=== PATIENT | female | born 1980 | race Caucasian/White ===

== ENCOUNTER 2020-01-27 18:30 | Emergency (ER) | payer MEDICARE, MEDICAID, SELFPAY ==
--- NOTE | 2020-01-27 18:34 | ED.EAR ---
HPI - Ear Problem General Chief complaint: Ear Stated complaint: ears bleeding/pain,sore throat, cough, Time Seen by Provider: 01/27/20 18:34 Source: patient and RN notes reviewed Mode of arrival: ambulatory Limitations: no limitations History of Present Illness Complaint: ear pain and ear discharge Severity: moderate Relieving factors: nothing Treatment prior to arrival: none Related Data Allergies Allergy/AdvReac Type Severity Reaction Status Date / Time adhesive Allergy Intermediate unknown Verified 10/12/19 13:29 amlodipine Allergy Intermediate unknown Verified 10/12/19 13:29 sumatriptan [Imitrex] Allergy Intermediate unknown Verified 10/12/19 13:29 metoprolol Allergy Unknown unknown Verified 10/12/19 13:29 morphine Allergy Unknown unknown Verified 10/12/19 13:29 oxycodone Allergy Unknown unknown Verified 10/12/19 13:29 Penicillins Allergy Unknown unknown Verified 10/12/19 13:29 shellfish derived Allergy Unknown unknown Verified 10/12/19 13:29 Review of Systems Constitutional: Constitutional: Denies chills and Denies fever(s) Eyes: Eyes: Reports no additional eye complaints ENT: Reports sore throat (scratchy) Cardiovascular: Cardiovascular: Reports no additional cardiovascular complaints Respiratory: Respiratory: Reports cough (Dry), Denies dyspnea and Denies wheezing Musculoskeletal: Musculoskeletal: Reports no additional musculoskeletal complaints Integumentary/Breasts: Skin/Breast: Reports system reviewed and no additional complaints, except as docu Neurologic: Reports system reviewed and no additional complaints, except as documented Psychiatric: Psychiatric: Reports no additional psychiatric complaints Endocrine: Endocrine: Reports no additional endocrine complaints Allergic/Immunologic: Allergic/Immunologic: Reports no additional allergic/immunologic complaints [facility] Past Medical History Medical History ADHD Anxiety Boil of groin Brain tumor no surgery, chemotherapy, or radiotherapy. Hypertension Low grade glioma of brain Major depression, recurrent Migraines Nicotine dependence, cigarettes, uncomplicated Obesity, Class I, BMI 30-34.9 Ovarian cyst Pulmonary embolus Schizophrenia Surgical History Surgical History H/O laparoscopy x6 H/O ovarian cystectomy (~1995) History of (~2002) Family History Family History Other Diabetes mellitus Family history of coronary artery disease Family history of mental disorder Social History Social History Smoking packs per day: 1 Smoking cigarettes per day: 20.0 Years smoked: 22 Smoking pack-years: 22.00 Smoking status: Current every day smoker Alcohol intake: never Substance use: former Substance use type: marijuana Additional living arrangements comments: Gender identity (if verbalized by the patient): Female Spiritual care concerns: No Exam Const: General: healthy appearing and no acute distress Nutritional Appearance: well nourished Orientation/consciousness: patient oriented x3 Other: Female nurse in room during examination. HENMT: Head: normal to inspection Ears: TM's normal bilaterally, Abnormal EAC present erythema on the left, edema on the left and EAC tenderness on the left; no foreign body and no otic discharge and no periauricular adenopathy General nose exam: Normal external nose present and Normal nares present Mouth: Yes Normal oral and palatal mucosa present and Yes oropharynx normal Throat: tonsils normal and uvula midline Eyes: Conjunctivae: conjunctivae normal Pupils: Equal, round and reactive pupils present EOM: EOMs intact bilaterally Neck: Neck: normal visual inspection and no lymphadenopathy Resp: Effort & Inspection: normal respiratory effort Aus
[2020-01-27 18:48] VITALS: BP 163/102; PULSE 92; RESP 15; TEMP 36.7; O2SAT 100
[2020-01-27 18:53] VITALS: RESP 15
[2020-01-27 18:55] VITALS: RESP 15
--- NOTE | 2020-01-27 18:57 | PC.NURSE ---
IN PTS ROOM DURING ERP PHYSICAL EXAM
== END 2020-01-27 18:56 | disposition home or self-care (01) ==
PROVIDERS: Emergency Provider Emergency Medicine; PCP Nurse Practitioner Family
DX: H60.312 Diffuse otitis externa, left ear (principal)
CPT/HCPCS: 99283

== ENCOUNTER 2021-06-14 10:25 | Outpatient (CLI) | payer MEDICARE, MEDICAID, SELFPAY ==
--- NOTE | 2021-06-14 10:40 | PC.NURSE ---
Here for covid infusion, isolation room used
[2021-06-14] MEDS: ACETAMINOPHEN 325 MG TABLET 650 MG PO (10:55)
[2021-06-14] MEDS: FAMOTIDINE 20 MG TABLET PO (10:56)
[2021-06-14] MEDS: diphenhydrAMINE HCl CAP 25 MG CAPSULE PO (10:56)
--- NOTE | 2021-06-14 10:57 | PC.NURSE ---
consent signed and pre medication given
[2021-06-14 11:30] VITALS: BP 131/81; PULSE 72; RESP 18; O2SAT 98
--- NOTE | 2021-06-14 11:49 | PC.NURSE ---
Infusion complete, tolerated well
--- NOTE | 2021-06-14 12:26 | PC.NURSE ---
Up to void, denies needs
[2021-06-14 12:37] VITALS: BP 144/98; PULSE 68; RESP 18; TEMP 36; O2SAT 96
--- NOTE | 2021-06-14 12:39 | PC.NURSE ---
Discharged to home via wheel chair, denies needs, information packet on covid infusion given, voiced no questions upon discharge home
== END 2021-06-14 10:26 | disposition home or self-care (01) ==
PROVIDERS: PCP Family Medicine; Visit Provider Family Medicine
DX: Z23 Encounter for immunization (principal); U07.1 COVID-19
CPT/HCPCS: 96365; A9270; M0245; Q0245

== ENCOUNTER 2022-01-11 16:00 | Emergency (ER) | payer OTHER, SELFPAY ==
[2022-01-11 16:15] VITALS: BP 131/95; PULSE 92; RESP 16; TEMP 36.2; O2SAT 98
--- NOTE | 2022-01-11 16:38 | ED.WOUNDLAC ---
HPI - Wound/Laceration General Stated Complaint: cut on ankle Source: patient and family Mode of arrival: ambulatory Limitations: no limitations History of Present Illness HPI narrative: this is a 41-year-old female that presents after she cut herself on a piece of glass while she was taking out the trash on the left medial ankle approximately2.5cm non gaping currently no bleeding, will update patient with her tetanus. Onset (ago): hour(s) Extremity Location: Left: ankle ( non gaping laceration) Place: home Context: accidental Associated symptoms: none Related Data Allergies Allergy/AdvReac Type Severity Reaction Status Date / Time adhesive Allergy Intermediate unknown Verified 06/12/21 10:58 amlodipine Allergy Intermediate unknown Verified 06/12/21 10:58 cephalexin [From Keflex] Allergy Intermediate rash, SOB, Verified 06/12/21 10:58 swelling sumatriptan [Imitrex] Allergy Intermediate unknown Verified 06/12/21 10:58 metoprolol Allergy Unknown unknown Verified 06/12/21 10:58 oxycodone Allergy Unknown unknown Verified 06/12/21 10:58 Penicillins Allergy Unknown unknown Verified 06/12/21 10:58 shellfish derived Allergy Unknown unknown Verified 06/12/21 10:58 Review of Systems Review of Systems: All systems reviewed & are unremarkable except as noted in HPI and below PMFSH Past Medical History Medical History (Updated 01/11/22 @ 16:41 by Mc Brush MD) ADHD Anxiety Asthma Boil of groin Brain tumor no surgery, chemotherapy, or radiotherapy. Hypertension Low grade glioma of brain Major depression, recurrent Migraines Nicotine dependence, cigarettes, uncomplicated Obesity, Class I, BMI 30-34.9 Ovarian cyst Pulmonary embolus Schizophrenia Surgical History Surgical History H/O laparoscopy x6 H/O ovarian cystectomy (~1995) History of (~2002) Family History Family History Other Diabetes mellitus Family history of coronary artery disease Family history of mental disorder Social History Social History Smoking packs per day: 1 Smoking cigarettes per day: 20.0 Years smoked: 22 Smoking pack-years: 22.00 Smoking status: Current every day smoker Alcohol intake: never Substance use: former Substance use type: marijuana Additional living arrangements comments: Gender identity (if verbalized by the patient): Female Spiritual care concerns: No Exam Const: General: no acute distress HENMT: Head: normal to inspection Eyes: Conjunctivae: conjunctivae normal Pupils: Equal, round and reactive pupils present Neck: Neck: normal visual inspection, no lymphadenopathy and no meningeal signs Chest: Chest palpation & inspection: normal inspection of the chest Resp: Effort & Inspection: normal respiratory effort Cardio: Rate: regular rate Rhythm: regular rhythm GI: GI Palp: Yes Soft to palpation Percussion: Yes normal to percussion Skin: Other: 2.5cm non gaping laceration left medial ankle Neuro: General: patient oriented x3 Extrem: General: normal to inspection Psych: Mental Status: mental status grossly normal Course Course Emergency Course: patient received tetanus, and Dermabond was placed on the laceration. Procedures Laceration Laceration 1: Date: 01/11/22 Time: 16:40 Site: lower extremity Side (If applicable): left Size (cm): 2.5 Description: linear ====== Skin Level ====== Skin layer closed with: dermabond ====== Subcutaneous Layer ====== ====== Muscle Layer ====== ====== Tendon Layer ====== Critical Care Time Critical Care Time Critical Care Time: No Discharge Plan Discharge Clinical Impression: Laceration Patient Disposition: Home, Self-Care Condition: Stable Instru
[2022-01-11 17:15] VITALS: BP 135/80; PULSE 74; RESP 16; TEMP 36.7; O2SAT 97
== END 2022-01-11 17:20 | disposition home or self-care (01) ==
PROVIDERS: Emergency Provider Emergency Medicine; PCP Nurse Practitioner Family
DX: S91.012A Laceration without foreign body, left ankle, initial encounter (principal); W25.XXXA Contact with sharp glass, initial encounter
CPT/HCPCS: 12001; 99282

== ENCOUNTER 2022-05-11 09:51 | Outpatient (CLI) | payer OTHER, SELFPAY ==
[2022-05-11 11:07] LABS: SARS-CoV-2 RNA PCR Positive (Negative)
== END 2022-05-11 09:52 | disposition home or self-care (01) ==
PROVIDERS: PCP Family Medicine; Visit Provider Family Medicine
DX: U07.1 COVID-19 (principal); R09.81 Nasal congestion
CPT/HCPCS: C9803; U0003; U0005

== ENCOUNTER 2022-07-13 12:30 | Outpatient (CLI) | payer OTHER, SELFPAY ==
[2022-07-13 12:53] LABS: Hematocrit 43.6 % (35.0-49.0); Hemoglobin 14.3 g/dL (12.0-15.0); Mean Corpuscular HGB Conc 32.8 g/dL (32.0-36.0); Mean Corpuscular Volume 94.4 fL (78.0-102.0); Mean Platelet Volume 9.3 fl (9.2-11.8); Platelet Count Result 392 K/mm3 (150-420); Red Blood Count 4.62 M/mm3 (4.20-5.40); Red Cell Distribution Width 13.7 % (11.6-14.4); White Blood Count 10.8 K/mm3 (4.8-10.8)
[2022-07-13 13:51] LABS: Alanine Aminotransferase 18 U/L (14-59); Albumin Level 4.2 g/dL (3.4-5.0); Alkaline Phosphatase 99 U/L (46-116); Anion Gap 11 mmol/L (8-16); Aspartate Amino Transferase < 10 U/L (15-37); Bilirubin,Total 0.6 mg/dL (0.00-1.00); Blood Urea Nitrogen 13 mg/dL (7-18); Calcium 9.1 mg/dL (8.5-10.1); Carbon Dioxide 23 mmol/L (21-32); Chloride 102 mmol/L (98-108); Cholesterol 230 mg/dL (0-200); Estimated Glomerular Filt Rate > 60; Glucose 96 mg/dL (70-99); HDL Direct 82 mg/dL (40-60); LDL Cholesterol Calculated 135 mg/dL (<130); Magnesium 2.1 mg/dL (1.8-2.4); Osmolality Calculated 282 mOsm/kg (285-295); Potassium 3.7 mmol/L (3.5-5.1); Sodium 136 mmol/L (136-145); Total Protein 7.6 g/dL (6.4-8.2); Triglycerides 66 mg/dL (0-150)
[2022-07-13 14:10] LABS: Thyroid Stimulating Hormone Reflex 1.44 u/IU/mL (0.36-3.74)
== END 2022-07-13 12:31 | disposition home or self-care (01) ==
LOC: CHSLAB 12:32
PROVIDERS: PCP Family Medicine; Visit Provider Family Medicine
DX: E11.9 Type 2 diabetes mellitus without complications (principal); I10 Essential (primary) hypertension
CPT/HCPCS: 36415; 80053; 80061; 83036; 83735; 84443; 85027

== ENCOUNTER 2022-07-14 18:30 | Emergency (ER) | payer OTHER, SELFPAY ==
[2022-07-14 18:44] VITALS: BP 180/102; PULSE 110; RESP 16; TEMP 36.7; O2SAT 98
--- NOTE | 2022-07-14 18:46 | ED.EXTPRO ---
HPI - Extremity Problem General Chief complaint: Extremity Problem,Nontraumatic Stated complaint: knot in L wrist;started a weak ago;painful Time Seen by Provider: 07/14/22 18:33 Source: patient Mode of arrival: ambulatory Limitations: no limitations History of Present Illness HPI Narrative: patient presents with a cyst on her left wrist, had been smaller but over the last week has increased in size and currently it is painful with no redness no warmth or tenderness no drainage. MD Complaint: extremity pain Related Data Allergies Allergy/AdvReac Type Severity Reaction Status Date / Time adhesive Allergy Intermediate unknown Verified 07/14/22 18:49 amlodipine Allergy Intermediate unknown Verified 07/14/22 18:49 cephalexin [From Keflex] Allergy Intermediate rash, SOB, Verified 07/14/22 18:49 swelling sumatriptan [Imitrex] Allergy Intermediate unknown Verified 07/14/22 18:49 metoprolol Allergy Unknown unknown Verified 07/14/22 18:49 oxycodone Allergy Unknown unknown Verified 07/14/22 18:49 Penicillins Allergy Unknown unknown Verified 07/14/22 18:49 shellfish derived Allergy Unknown unknown Verified 07/14/22 18:49 Review of Systems Review of Systems: All systems reviewed & are unremarkable except as noted in HPI and below PMFSH Past Medical History Medical History (Updated 07/14/22 @ 18:49 by Mc Brush MD) ADHD Anxiety Asthma Boil of groin Brain tumor no surgery, chemotherapy, or radiotherapy. Hypertension Low grade glioma of brain Major depression, recurrent Migraines Nicotine dependence, cigarettes, uncomplicated Obesity, Class I, BMI 30-34.9 Ovarian cyst Pulmonary embolus Schizophrenia Surgical History Surgical History H/O laparoscopy x6 H/O ovarian cystectomy (~1995) History of (~2002) Family History Family History Other Diabetes mellitus Family history of coronary artery disease Family history of mental disorder Social History Social History Smoking packs per day: 1 Smoking cigarettes per day: 20.0 Years smoked: 22 Smoking pack-years: 22.00 Smoking status: Current every day smoker Alcohol intake: never Substance use: former Substance use type: marijuana Additional living arrangements comments: Gender identity (if verbalized by the patient): Female Spiritual care concerns: No Exam Const: General: healthy appearing Nutritional Appearance: well nourished Orientation/consciousness: patient oriented x3 Limitations: no limitations HENMT: Head: normal to inspection Face and sinus: normal facial exam Mouth: Yes Normal oral and palatal mucosa present Eyes: Conjunctivae: conjunctivae normal Pupils: Equal, round and reactive pupils present EOM: EOMs intact bilaterally Neck: Neck: normal visual inspection Chest: Chest palpation & inspection: normal inspection of the chest Resp: Effort & Inspection: normal respiratory effort Auscultation: clear to auscultation bilaterally Cardio: Rhythm: regular rhythm GI: GI Palp: Yes Soft to palpation Auscultation: normal bowel sounds : General: Yes bladder normal to palpation Skin: Other: Assist located on the anterior surface of her left wrist that appears to be a ganglion cyst with no warmth no redness it is tender to touch with no drainage. Neuro: General: patient oriented x3 Cranial nerves: Yes Nystagmus not present Speech: normal speech Extrem: General: normal to inspection, no clubbing, cyanosis or edema and no pedal edema Course Course Emergency Course: Patient received shot of Toradol 60mg IM Critical Care Time Critical Care Time Critical Care Time: No Discharge Plan Discharge Clinical Impression: Ganglion cyst Patient Disposition: Home, Self-Care Condition: Stable Instructions: Anti
[2022-07-14] MEDS: KETOROLAC (*BKC) 60 MG/2 ML VIAL IM (18:57)
[2022-07-14 19:01] VITALS: BP 146/113; PULSE 110; RESP 16; TEMP 36.7; O2SAT 98
== END 2022-07-14 19:03 | disposition home or self-care (01) ==
PROVIDERS: Emergency Provider Emergency Medicine; PCP Family Medicine
DX: M67.432 Ganglion, left wrist (principal)
CPT/HCPCS: 96372; 99283; J1885

== ENCOUNTER 2022-09-25 13:16 | Outpatient (CLI) | payer OTHER, SELFPAY ==
--- NOTE | 2022-09-25 13:22 | ECG_ITS ---
Measurements Intervals [place] Rate: 88 P: 64 [place]: 124 QRS: 63 QRSD: 92 T: 57 QT: 390 QTc: 473 Interpretive Statements SINUS RHYTHM BASELINE WANDER- I, II, III, AVR, AVL NORMAL ECG COMPARED TO ECG 09/06/2019 20:58:55 NO SIGNIFICANT CHANGES Electronically Signed On 09-25-2022 14:09:50 [employer]ER by Pierce Alarcon D.O.
== END 2022-09-25 13:17 | disposition home or self-care (01) ==
LOC: CHSCARD 13:19
PROVIDERS: PCP Family Medicine; Visit Provider Anesthesiology
DX: Z01.818 Encounter for other preprocedural examination (principal); I10 Essential (primary) hypertension
CPT/HCPCS: 93005

== ENCOUNTER 2022-10-08 10:13 | Outpatient (CLI) | payer OTHER, SELFPAY ==
--- NOTE | ~2022-10-08 | US_ITS ---
Ultrasound of the right axilla CLINICAL HISTORY: Lump TECHNIQUE: Sonographic imaging of the right axilla was performed. FINDINGS: At the area of clinical concern, there is a 5 x 3 x 7 mm hypoechoic structure just beneath the skin surface, possibly sebaceous cyst. No other sonographic abnormality seen in the region scanne d. IMPRESSION: Subcentimeter hypoechoic structure at the area of clinical concern, possibly small sebaceous cyst. Cl inical follow-up advised. Consider follow-up exam if the lesion progresses or fails to resolve. Reviewed, dictated and finalized at location M. ET ASSISTANT IMPRESSION: Subcentimeter hypoechoic structure at the area of clinical concern, possibly sm all sebaceous cyst. Clinical follow-up advised. Consider follow-up exam if the lesion progresses or fails to resolve.
== END 2022-10-08 10:14 | disposition home or self-care (01) ==
PROVIDERS: PCP Family Medicine; Visit Provider Family Medicine
DX: R22.31 Localized swelling, mass and lump, right upper limb (principal)
CPT/HCPCS: 76882

== ENCOUNTER 2022-11-17 09:02 | Outpatient (CLI) | payer OTHER, SELFPAY ==
--- NOTE | ~2022-11-17 | MR_ITS ---
MRI of the brain Clinical History: Headache, confusion, history of brain tumor Technique: Axial and sagittal T1-weighted images were acquired. These were followed by axial T2-weigh jt, diffusion weighted, gradient, and FLAIR images. COMPARISON: 07/19/2018 Findings: No acute infarct or intracranial hemorrhage identified. Stable small apparent T2 hyperinten se mass at the posterior left midbrain measuring 9 mm in maximum diameter (series 6 image 12). Ventricles and subarachnoid spaces are unremarkable. Orbits are unremarkable. Paranasal sinuses and m astoid air cells are clear. Major intracranial flow voids appear intact. Sagittal midline structures are intact. IMPRESSION: No acute abnormality. Stable 9 mm T2 hyperintense circumscribed mass at the posterior left midbrain region. Reviewed, dictated and finalized at location M. IMPRESSION: No acute abnormality. Stable 9 mm T2 hyperintense circumscribed mass at the posterior left midbrain r egion.
== END 2022-11-17 09:03 | disposition home or self-care (01) ==
LOC: CHSIMG 09:03
PROVIDERS: PCP Family Medicine; Visit Provider Family Medicine
DX: C71.9 Malignant neoplasm of brain, unspecified (principal)
CPT/HCPCS: 70551

== ENCOUNTER 2023-02-17 12:52 | Emergency (ER) | payer OTHER, SELFPAY ==
--- NOTE | ~2023-02-17 | XR_ITS ---
XR hand BI arthritis min 3V DATE: 02/17/2023 13:22 INDICATION: Painful swelling and tenderness for one week TECHNIQUE: 4 views of each hand COMPARISON: None FINDINGS: No fracture or dislocation, periosteal reaction or bone destruction, erosive change or garry dral calcinosis. Mild narrowing at some interphalangeal joints suggests there are mild osteoarthritis . IMPRESSION: Very mild osteoarthritis Reviewed, dictated and finalized at location A. IMPRESSION: Very mild osteoarthritis
[2023-02-17 12:54] VITALS: BP 176/93; PULSE 90; RESP 20; TEMP 36.8; O2SAT 100
--- NOTE | 2023-02-17 13:11 | ED.GENADULT ---
HPI - General Adult General Chief complaint: Extremity Injury, Upper Stated complaint: hand swelling Time Seen by Provider: 02/17/23 13:00 History of Present Illness HPI narrative: Mary is a 42F with a complex history of schizoaffective disorder, severe headaches, idiopathic neuropathy, GERD, Asthma, anxiety and HTN that presented to the ED with a few days of worsening pain and swelling in her hands bilaterally. No injury or trauma reported. She says they feel, swollen, are weak an she has been dropping things. Related Data Allergies Allergy/AdvReac Type Severity Reaction Status Date / Time adhesive Allergy Intermediate Rash Verified 02/17/23 13:08 amlodipine Allergy Intermediate Rash Verified 02/17/23 13:08 cephalexin [From Keflex] Allergy Intermediate rash, SOB, Verified 02/17/23 13:08 swelling sumatriptan [Imitrex] Allergy Intermediate Rash Verified 02/17/23 13:08 metoprolol Allergy Unknown Rash Verified 02/17/23 13:08 oxycodone Allergy Unknown Rash Verified 02/17/23 13:08 Penicillins Allergy Unknown Rash Verified 02/17/23 13:08 shellfish derived Allergy Unknown Rash Verified 02/17/23 13:08 tramadol AdvReac Rash Verified 02/17/23 13:08 Review of Systems Review of Systems: All systems reviewed & are unremarkable except as noted in HPI and below PMFSH Past Medical History Medical History (Updated 02/17/23 @ 14:12 by Diego Ralph DO) ADHD Anxiety Asthma Boil of groin Brain tumor no surgery, chemotherapy, or radiotherapy. Hypertension Low grade glioma of brain Major depression, recurrent Migraines Nicotine dependence, cigarettes, uncomplicated Obesity, Class I, BMI 30-34.9 Ovarian cyst Pulmonary embolus Schizophrenia Surgical History Surgical History H/O laparoscopy x6 H/O ovarian cystectomy (~1995) History of (~2002) Family History Family History Other Diabetes mellitus Family history of coronary artery disease Family history of mental disorder Social History Social History Smoking packs per day: 1 Smoking cigarettes per day: 20.0 Years smoked: 25 Smoking pack-years: 25.00 Smoking status: Current every day smoker Tobacco type: cigarettes Alcohol intake: never Substance use: current Substance use type: marijuana Living arrangements: with family Additional living arrangements comments: Gender identity (if verbalized by the patient): Female Spiritual care concerns: No Exam Const: General: healthy appearing and no acute distress Nutritional Appearance: well nourished Orientation/consciousness: patient oriented x3 HENMT: Head: normal to inspection Ears: external ears normal Face/Nose/Sinus: Normal external nose present Face and sinus: normal facial exam Eyes: Conjunctivae: conjunctivae normal Pupils: Equal, round and reactive pupils present EOM: EOMs intact bilaterally Neck: Neck: normal visual inspection Chest: Chest palpation & inspection: normal inspection of the chest Resp: Effort & Inspection: normal respiratory effort Cardio: Rate: regular rate Skin: General skin exam: normal color Rashes: no rashes Neuro: General: patient oriented x3 and moves all extremities Cranial nerves: Yes Nystagmus not present Speech: normal speech Extrem: General: normal to inspection Other: hands are normal to inspection. No joint TTP. strong radial pulses bilaterally. She was able to make a fist. Psych: Mental Status: mental status grossly normal Course Course Emergency Course: Ordered Toradol, labs and radiographs. XR hand BI arthritis min 3V DATE: 02/17/2023 13:22 INDICATION: Painful swelling and tenderness for one week? TECHNIQUE: 4 views of each hand? COMPARISON: None? FINDINGS: No fracture or dislocation, periosteal reaction or bone destruction, erosive
[2023-02-17] MEDS: KETOROLAC 30 MG/ML VIAL (*BKC) IM (13:29)
[2023-02-17 13:41] LABS: Basophils Absolute Auto 0.04 K/mm3 (0.00-0.10); Basophils Percent Auto 0.7 % (0.0-1.0); Eosinophils Percent Auto 1.7 % (1.0-6.0); Hematocrit 40.2 % (35.0-49.0); Hemoglobin 13.4 g/dL (12.0-15.0); Immature Granulocyte Absolute 0.01 K/mm3 (0.00-0.00); Immature Granulocyte Percent A 0.2 % (0.0-0.0); Lymphocytes Absolute Auto 2.54 K/mm3 (1.10-4.50); Mean Corpuscular HGB Conc 33.3 g/dL (32.0-36.0); Mean Corpuscular Hemoglobin 31.9 pg (27.0-31.0); Mean Corpuscular Volume 95.7 fL (78.0-102.0); Mean Platelet Volume 9.5 fl (9.2-11.8); Monocytes Absolute Auto 0.37 K/mm3 (0.10-0.90); Monocytes Percent Auto 6.3 % (2.0-11.0); Neutrophils Absolute Auto 2.9 K/mm3 (1.7-7.2); Neutrophils Percent Auto 48.1 % (50.0-70.0); Platelet Count Result 343 K/mm3 (150-420); Red Cell Distribution Width 13.9 % (11.6-14.4); White Blood Count 5.9 K/mm3 (4.8-10.8)
[2023-02-17 14:05] VITALS: BP 130/69; PULSE 62; RESP 16; TEMP 36.5; O2SAT 99
[2023-02-17 14:09] LABS: Alanine Aminotransferase 16 U/L (14-59); Albumin Level 3.8 g/dL (3.4-5.0); Alkaline Phosphatase 92 U/L (46-116); Anion Gap 7 mmol/L (8-16); Aspartate Amino Transferase 19 U/L (15-37); Bilirubin,Total 0.4 mg/dL (0.00-1.00); Blood Urea Nitrogen 8 mg/dL (7-18); CRP < 0.5 mg/dL (0.0-0.9); Calcium 8.9 mg/dL (8.5-10.1); Carbon Dioxide 28 mmol/L (21-32); Chloride 105 mmol/L (98-108); Estimated CRCL calculation 91 ml/min; Estimated Glomerular Filt Rate > 60; Glucose 104 mg/dL (70-99); Osmolality Calculated 288 mOsm/kg (285-295); Potassium 3.8 mmol/L (3.5-5.1); Sodium 140 mmol/L (136-145); Total Protein 7.1 g/dL (6.4-8.2)
== END 2023-02-17 14:20 | disposition home or self-care (01) ==
PROVIDERS: Emergency Provider Family Medicine; PCP Family Medicine
DX: G60.9 Hereditary and idiopathic neuropathy, unspecified (principal); I10 Essential (primary) hypertension; F17.210 Nicotine dependence, cigarettes, uncomplicated
CPT/HCPCS: 36415; 73130; 80053; 85025; 86140; 96372; 99283; J1885

== ENCOUNTER 2023-05-06 16:09 | Emergency (ER) | payer OTHER, SELFPAY ==
[2023-05-06 16:15] VITALS: BP 164/90; PULSE 106; RESP 20; TEMP 37.1; O2SAT 100
--- NOTE | 2023-05-06 16:31 | ECG_ITS ---
Measurements Intervals [place] Rate: 87 P: 59 [place]: 155 QRS: 43 QRSD: 93 T: 42 QT: 394 QTc: 477 Interpretive Statements SINUS RHYTHM BASELINE ARTIFACT- I, II, AVR, AVL NORMAL ECG COMPARED TO ECG 09/25/2022 13:29:10 NO SIGNIFICANT CHANGES Electronically Signed On 05-07-2023 7:08:12 CDT by Pierce Alarcon D.O.
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
[2023-05-06 16:42] LABS: Basophils Absolute Auto 0.06 K/mm3 (0.00-0.10); Basophils Percent Auto 0.6 % (0.0-1.0); Eosinophils Absolute Auto 0.24 K/mm3 (0.02-0.50); Eosinophils Percent Auto 2.4 % (1.0-6.0); Hematocrit 38.3 % (35.0-49.0); Hemoglobin 13.2 g/dL (12.0-15.0); Immature Granulocyte Absolute 0.03 K/mm3 (0.00-0.00); Immature Granulocyte Percent A 0.3 % (0.0-0.0); Lymphocytes Absolute Auto 2.13 K/mm3 (1.10-4.50); Lymphocytes Percent Auto 21.1 % (18.0-42.0); Mean Corpuscular HGB Conc 34.5 g/dL (32.0-36.0); Mean Corpuscular Hemoglobin 31.9 pg (27.0-31.0); Mean Corpuscular Volume 92.5 fL (78.0-102.0); Mean Platelet Volume 9.4 fl (9.2-11.8); Monocytes Absolute Auto 0.61 K/mm3 (0.10-0.90); Monocytes Percent Auto 6.1 % (2.0-11.0); Neutrophils Percent Auto 69.5 % (50.0-70.0); Platelet Count Result 363 K/mm3 (150-420); Red Blood Count 4.14 M/mm3 (4.20-5.40); Red Cell Distribution Width 13.1 % (11.6-14.4); White Blood Count 10.1 K/mm3 (4.8-10.8)
[2023-05-06 17:09] LABS: Alanine Aminotransferase 22 U/L (14-59); Albumin Level 3.8 g/dL (3.4-5.0); Alkaline Phosphatase 98 U/L (46-116); Anion Gap 10 mmol/L (8-16); Aspartate Amino Transferase 15 U/L (15-37); Bilirubin,Total 0.4 mg/dL (0.00-1.00); Blood Urea Nitrogen 16 mg/dL (7-18); Calcium 8.8 mg/dL (8.5-10.1); Carbon Dioxide 25 mmol/L (21-32); Chloride 107 mmol/L (98-108); Estimated CRCL calculation 78 ml/min; Estimated Glomerular Filt Rate > 60; Glucose 140 mg/dL (70-99); Osmolality Calculated 297 mOsm/kg (285-295); Potassium 3.2 mmol/L (3.5-5.1); Salicylate 5.9 mg/dL (2.8-20.0); Sodium 142 mmol/L (136-145); Thyroid Stimulating Hormone 2.25 uIU/mL (0.36-3.74); Total Protein 7.3 g/dL (6.4-8.2)
[2023-05-06 17:10] LABS: Appearance Urine Cloudy (Clear); Bilirubin Urine Negative (Negative); Blood Urine Negative (Negative); Color Urine Yellow (Yellow); Glucose Urine UA Negative (Negative); Ketones Urine Negative (Negative); Leukocyte Esterase Ur Negative LEU/UL (Negative); Nitrate Urine Negative (Negative); Protein Urine 2+ (Negative); pH Urine 7.5 (5.0-8.0)
[2023-05-06 17:11] LABS: Acetaminophen < 2 ug/mL (10-30); Ethanol < 3 mg/dL (0-6)
[2023-05-06 17:16] LABS: Add Urine Microscopic? YES; Amorphous Sediment Urine Heavy; Bacteria Urine 1+ /hpf; RBC Urine 0-2 /hpf (0-2); Squamous Epithelial Cell Urine Moderate /hpf (Few); WBC Urine 0-3 /hpf (0-3)
[2023-05-06 17:17] LABS: Pregnancy On Board Control Positive; Urine Pregnancy Test Negative
[2023-05-06 17:20] LABS: Amphetamine Screen Urine Positive (Negative); Barbiturate Screen Urine Negative (Negative); Benzodiazepines Screen Urine Negative (Negative); Cannabinoid Screen Urine Positive (Negative); Cocaine Screen Urine Negative (Negative); Methadone Screen Urine Negative (Negative); Opiate Screen Urine Negative (Negative); Phencyclidine Screen Urine Negative (Negative)
[2023-05-06 18:50] VITALS: BP 138/82; PULSE 84; RESP 20; TEMP 37.2; O2SAT 98
--- NOTE | 2023-05-06 19:36 | PC.NURSE ---
[facility] has arrived to evaluate pt at this time.
--- NOTE | 2023-05-06 22:22 | PC.NURSE ---
Pt discharged during downtime, please see paper charting. [facility] paperwork attached.
== END 2023-05-06 22:24 | disposition home or self-care (01) ==
PROVIDERS: Emergency Provider Family Medicine
DX: F15.10 Other stimulant abuse, uncomplicated (principal); F30.9 Manic episode, unspecified; F25.9 Schizoaffective disorder, unspecified; I10 Essential (primary) hypertension; J45.909 Unspecified asthma, uncomplicated; Z79.899 Other long term (current) drug therapy
CPT/HCPCS: 36415; 80053; 80307; 81001; 81025; 84443; 85025; 93005; 99284

== ENCOUNTER 2024-01-20 12:00 | Outpatient (CLI) | payer OTHER, SELFPAY ==
[2024-01-20 12:40] LABS: Basophils Absolute Auto 0.04 K/mm3 (0.00-0.10); Basophils Percent Auto 0.4 % (0.0-1.0); Eosinophils Absolute Auto 0.22 K/mm3 (0.02-0.50); Eosinophils Percent Auto 2.5 % (1.0-6.0); Hematocrit 41.8 % (35.0-49.0); Immature Granulocyte Absolute 0.01 K/mm3 (0.00-0.00); Immature Granulocyte Percent A 0.1 % (0.0-0.0); Lymphocytes Absolute Auto 2.96 K/mm3 (1.10-4.50); Lymphocytes Percent Auto 33.2 % (18.0-42.0); Mean Corpuscular HGB Conc 33.5 g/dL (32-36); Mean Corpuscular Hemoglobin 30.6 pg (27.0-31.0); Mean Corpuscular Volume 91.5 fL (78.0-102.0); Mean Platelet Volume 9.6 fl (9.2-11.8); Monocytes Absolute Auto 0.64 K/mm3 (0.10-0.90); Monocytes Percent Auto 7.2 % (2.0-11.0); Neutrophils Absolute Auto 5.04 K/mm3 (1.70-7.20); Neutrophils Percent Auto 56.6 % (50.0-70.0); Platelet Count Result 382 K/mm3 (150-420); Red Blood Count 4.57 M/mm3 (4.20-5.40); Red Cell Distribution Width 13.7 % (11.6-14.4); White Blood Count 8.9 K/mm3 (4.8-10.8)
[2024-01-20 22:55] LABS: Hemoglobin A1C < 4.7 % (<5.7)
[2024-01-20 23:34] LABS: Alanine Aminotransferase 20 U/L (14-59); Albumin Level 3.8 g/dL (3.4-5.0); Alkaline Phosphatase 97 U/L (46-116); Anion Gap 13 mmol/L (4-12); Aspartate Amino Transferase 15 U/L (15-37); Bilirubin,Total 1.1 mg/dL (0.00-1.00); Blood Urea Nitrogen 8 mg/dL (7-18); Calcium 8.7 mg/dL (8.5-10.1); Carbon Dioxide 22 mmol/L (21-32); Chloride 103 mmol/L (98-108); Cholesterol 227 mg/dL (0-200); Estimated Glomerular Filt Rate > 60; Glucose 95 mg/dL (70-99); HDL Direct 61 mg/dL (40-60); LDL Cholesterol Calculated 150 mg/dL (<130); Osmolality Calculated 284 mOsm/kg (285-295); Potassium 3.8 mmol/L (3.5-5.1); Sodium 138 mmol/L (136-145); Thyroid Stimulating Hormone 0.95 uIU/mL (0.36-3.74); Total Protein 7.2 g/dL (6.4-8.2); Triglycerides 82 mg/dL (0-150)
[2024-01-22 06:38] LABS: FSH 3.3 mIU/mL; LH 2.9 mIU/mL
[2024-01-27 01:29] LABS: Estradiol, Ultrasensitive 157 pg/mL
== END 2024-01-20 12:01 | disposition home or self-care (01) ==
LOC: CHSLAB 12:03
PROVIDERS: PCP Nurse Practitioner Family; Visit Provider Nurse Practitioner Family
DX: I10 Essential (primary) hypertension (principal); R73.09 Other abnormal glucose; R61 Generalized hyperhidrosis; G43.909 Migraine, unspecified, not intractable, without status migrainosus; F33.9 Major depressive disorder, recurrent, unspecified; Z00.00 Encounter for general adult medical examination without abnormal findings
CPT/HCPCS: 36415; 80053; 80061; 82670; 83001; 83002; 83036; 84443; 85025

== ENCOUNTER 2024-09-11 10:32 | Outpatient (CLI) | payer OTHER, SELFPAY ==
[2024-09-11 10:52] LABS: Basophils Absolute Auto 0.04 K/mm3 (0.00-0.10); Basophils Percent Auto 0.5 % (0.0-1.0); Eosinophils Absolute Auto 0.23 K/mm3 (0.02-0.50); Eosinophils Percent Auto 2.9 % (1.0-6.0); Hematocrit 42.9 % (35.0-49.0); Hemoglobin 14.3 g/dL (12.0-15.0); Immature Granulocyte Absolute 0.02 K/mm3 (0.00-0.00); Immature Granulocyte Percent A 0.2 % (0.0-0.0); Lymphocytes Absolute Auto 2.43 K/mm3 (1.10-4.50); Lymphocytes Percent Auto 30.3 % (18.0-42.0); Mean Corpuscular HGB Conc 33.3 g/dL (32-36); Mean Corpuscular Hemoglobin 30.6 pg (27.0-31.0); Mean Corpuscular Volume 91.7 fL (78.0-102.0); Mean Platelet Volume 9.3 fl (9.2-11.8); Monocytes Absolute Auto 0.46 K/mm3 (0.10-0.90); Monocytes Percent Auto 5.7 % (2.0-11.0); Neutrophils Absolute Auto 4.83 K/mm3 (1.70-7.20); Neutrophils Percent Auto 60.4 % (50.0-70.0); Platelet Count Result 382 K/mm3 (150-420); Red Blood Count 4.68 M/mm3 (4.20-5.40)
[2024-09-11 11:10] LABS: Hemoglobin A1C 5.1 % (<5.7)
[2024-09-11 11:46] LABS: Alanine Aminotransferase 23 U/L (14-59); Albumin Level 3.9 g/dL (3.4-5.0); Alkaline Phosphatase 99 U/L (46-116); Anion Gap 9 mmol/L (4-12); Aspartate Amino Transferase 13 U/L (15-37); Bilirubin,Total 0.6 mg/dL (0.00-1.00); Blood Urea Nitrogen 11 mg/dL (7-18); Calcium 9.4 mg/dL (8.5-10.1); Carbon Dioxide 26 mmol/L (21-32); Chloride 103 mmol/L (98-108); Cholesterol 253 mg/dL (0-200); Estimated Glomerular Filt Rate > 60; Glucose 103 mg/dL (70-99); HDL Direct 72 mg/dL (40-60); LDL Cholesterol Calculated 162 mg/dL (<130); Osmolality Calculated 285 mOsm/kg (285-295); Potassium 4.6 mmol/L (3.5-5.1); Sodium 138 mmol/L (136-145); Total Protein 7.2 g/dL (6.4-8.2); Triglycerides 97 mg/dL (0-150)
[2024-09-11 12:22] LABS: Thyroid Stimulating Hormone Reflex 1.84 u/IU/mL (0.36-3.74)
== END 2024-09-11 10:33 | disposition home or self-care (01) ==
PROVIDERS: PCP Family Medicine; Visit Provider Family Medicine
DX: E11.9 Type 2 diabetes mellitus without complications (principal); I10 Essential (primary) hypertension; E03.9 Hypothyroidism, unspecified
CPT/HCPCS: 36415; 80053; 80061; 83036; 84443; 85025

== ENCOUNTER 2024-11-14 08:39 | Outpatient (CLI) | payer OTHER, SELFPAY ==
--- NOTE | ~2024-11-14 | MR_ITS ---
MRI of the brain Clinical History: Malignant neoplasm of brain COMPARISON: 11/17/2022 Technique: Axial and sagittal T1-weighted images were acquired. These were followed by axial T2-weigh jt, diffusion weighted, gradient, and FLAIR images. Findings: Stable 9 mm ovoid T2/FLAIR hyperintense mass or lesion at the left posterolateral midbrain (axial FLAIR image 11). No other signal abnormality seen in the brain parenchyma. No acute infarct or intracranial hemorrhage. Ventricles and subarachnoid spaces are unremarkable. Orbits are unremarkable. Paranasal sinuses and m astoid air cells are clear. Major intracranial flow voids are intact. Sagittal midline structures are intact. IMPRESSION: Stable 9 mm circumscribed mass at the posterior left midbrain. Reviewed, dictated and finalized at location .
--- OUTSIDE RECORDS SUMMARY | 2024-11-14 08:42 | XMS_ITS | Continuity of Care Document ---
Author Organization [facility] Address [address] [place] [address] Phone Care Team Providers Care Research Interviewer Name Role Phone Allen Schneider MD Unavailable Unavailable Advance Directives Directive Yes / No Effective Date File Name No Information Encounters Encounter Description Practice Location Reason(s) For Visit Diagnoses Date Provider Providers Copied on Encounter [facility], [address] [place] [place], [id number], [place] tel:[phone] [facility] No Information [facility]. [address] [place], [place], [id number], [place]. tel:[phone] Family History Family Member Type Diagnosis Age At Onset No Information Payers Payer name Insurance type Covered constitution party ID Authoriza tion(s) No Information Social History Type Description Quantity Date Captured Comments Sex Female Smoking Status No Information Chief Complaint And Reason For Visit No Information Plan Of Treatment Date Type Action Status No Information History Of Present Illness Encounter Date Complaint History Of Prese nt Illness No Information Instructions Date Instruction Additional Infor mation No Information Assessments Type Assessment Date No Information
--- OUTSIDE RECORDS SUMMARY | 2024-11-14 08:42 | XMS_ITS ---
Author Organization [facility] Address [address] [place] [phone] Phone Care Team Providers Care Kersey Department Supervisor Name Role Phone CYDNEYJOLYNN DORMAN SANDI P Primary Care Provider [phone] Problems Includes: Active, inactive, and resolved Problems All Visits Onset Date Resolved Date Provider Condition S tatus Chronic Daily Headache Unknown KRYS SA G CR MOTOR OVERHAULER-FPA, COMMUTATOR REPAIRER-BC Active Last Documented On 3 3:32PM ; [facility] Essential Hypertension Unknown ALEX G KUL P MOTOR OVERHAULER-FPA, COMMUTATOR REPAIRER-BC Active Last Documented On 3 3:24PM ; [facility] Idiopathic Peripheral Neuropathy Unknown PETERSON VERÓNICA G CR MOTOR OVERHAULER-FPA, COMMUTATOR REPAIRER-BC Active Last Documented On 3 3:32PM ; [facility] Migraine Headache Unknown ALEX G CR APR N-FPA, COMMUTATOR REPAIRER-BC Active Last Documented On 3 3:32PM ; [facility] Schizophrenia Unknown ALEX G CR MOTOR OVERHAULER-FP A, COMMUTATOR REPAIRER-BC Active Last Documented On 3 3:24PM ; [facility] Plan of Treatment No Plan of Treatment Recorded Assessments Includes: Assessments for all patient encounters Findings Encounter Date Brain tumor PAIN MANAGEMENT NEW CONSULT with ALEX ANDINOLP MOTOR OVERHAULER-FPA, COMMUTATOR REPAIRER-BC 11/27/2022 Last Documented On 3 5:59PM ; [facility] Chronic daily headache PAIN MANAGEMENT N EW CONSULT with LAEX ANDINOLP MOTOR OVERHAULER-FPA, COMMUTATOR REPAIRER-BC 11/27/2022 Last Documented On 3 5:59PM ; [facility] Chronic pain syndrome PAIN MANAGEMENT NE W CONSULT with L[facility] PATEL 11/27/2022 Last Documented On 3 5:59PM ; [facility] Common migraine (without aur a) without intractable migraine without status migrainosus PAIN MANAGEMENT NEW CONSULT with L[facility] PATEL 11/27/2022 Last Documented On 3 5:59PM ; [facility] Medical Equipment - Implanted Devices Includes: Current and historical Devices No Medical Equipment Recorded Medications Includes: Current and historical Medications Current Medications (continue as prescribed) Topiramate 50 MG Oral Tablet 03/29/2023 Provider: LANE PATEL Diagnosis: Migraine w/o aur a, not intractable, w/o status migrainosus TAKE 1 TABLET BY MOUTH TWICE DAILY [needs appt] Last Documented On 3 7:45PM By ALEX SHERMAN ; [facility] Topiramate 25 MG Oral Tablet 11/27/2022 Provider: L[address] PATEL Diagnosis: Migraine w/o aur a, not intractable, w/o status migrainosus take 1 tablet at bedtime for 1 week then two times daily for 1 week then increase to 50mg two times daily Last Documented On 3 5:56PM By ALEX SHERMAN ; [facility] Ziprasidone HCl 80 MG Oral Capsule 11/07/2022 Provid er: LISANDRO ROGER APN Diagnosis: 1 at bedtime Last Documented On 3 5:56PM By ALEX SHERMAN ; [facility] Pregabalin 75 MG Oral Capsule 11/07/2022 Provider: SANDI CLAROS DO Diagnosis: Last Documented On 3 5:56PM By ALEX SHERMAN ; [facility] Carvedilol 6.25 MG Oral Tablet 10/17/2022 Provider: SANDI CLAROS DO Diagnosis: Last Documented On 3 5:56PM By ALEX SHERMAN ; [facility] Past Medications on file Topiramate 50 MG Oral Tablet 12/25/2022 - 03/29/2023 Provider: L[address] PATEL Diagnosis: Migraine w/o aur a, not intractable, w/o status migrainosus TAKE 1 TABLET BY MOUTH TWICE DAILY Last Documented On 3 7:37PM By ALEX SHERMAN ; [facility] Topiramate 50 MG Oral Tablet 11/28/2022 - 12/25/2022 Provider: L[address] PATEL Diagnosis: Migraine w/o aur a, not intractable, w/o status migrainosus One tablet twice a day Last Documented On 3 12:05PM By ALEX SEHRMAN ; [facility] Medications Administered Includes: Administered Medications in patient's chart No Administered Medications Recorded Results Includes: Results from 11/15/2023 through 11/14/2024 No Results Recorded For Specified Dates History of Present Illness History of Present Illness not supported for this document type No History of Present Illness Recorded Social History Description Last Updated Currently 2 kids: 6 miscarriages ~Kids 28 and 20 (girls) 11/27/2022 Last Documented On 3 5:59PM ; [facility] Occupation on Disability due to Schizoph veronica 11/27/2022 Last Documented On 3 5:59PM ; [facility] No consumption of alcohol Pr evious drank daily for about 10 years. She has not used alcohol for 6 years accept for 1 day jimenez she lost a dog and relapsed for just the 1 day. ~Started drinking socially at 17 11/27/2022 Last Documented On 3 5:59PM ; [facility] Not using drugs 11/27/2022 Last Documented On 3 5:59PM ; [facility] Smoking packs of cigarettes per day One 11/27/2022 Last Documented On 3 5:59PM ; [facility] Current smoker 11/27/2022 Last Documented On 3 5:59PM ; [facility] Smoking Status Unknown Procedures and Surgical History Surgical History Last Updated No Pacemaker 11/27/2022 Last Documented On 3 5:59PM ; [facility] Medical History Includes: Medical History in patient's chart Description Last Updated Please list all illnesses/co nditions you have been diagnosed with: Brain tumor, Bipolar, Depression,COPD, PMDD, Neuropathy 11/27/2022 Last Documented On 3 5:59PM ; [facility] Currently wearing eyeglasses 11/27/2022 Last Documented On 3 5:59PM ; [facility] No Pain Pump 11/27/2022 Last Documented On 3 5:59PM ; [facility] No Spinal cord stimulator 11/27/2022 Last Documented On 3 5:59PM ; [facility] Denies a fear of falling. 11/27/2022 Last Documented On 3 5:59PM ; [facility] Has had no fall in the last 12 months. 0 11/27/2022 Last Documented On 3 5:59PM ; [facility] Family History Includes: Family History in patient's chart Description Last Updated Family history of Bleeding disorder 11/01 Last Documented On 3 5:59PM ; [facility] Family history of ischemic heart disease 11/27/2022 Last Documented On 3 5:59PM ; [facility] Maternal history of Arthritis 11/27/2022 Last Documented On 3 5:59PM ; [facility] Maternal history of Bleeding disorder Last Documented On 3 5:59PM ; [facility] Maternal history of family history of is chemic heart disease 11/27/2022 Last Documented On 3 5:59PM ; [facility] Maternal history of family history of ki dney disease 11/27/2022 Last Documented On 3 5:59PM ; [facility] Maternal history of reported family hist ory of seizures 11/27/2022 Last Documented On 3 5:59PM ; [facility] Review of Systems Review of Systems not supported for this document type No Review of Systems Recorded Mental Status No Mental Status Recorded Functional Status No Functional Status Recorded Physical Exam Physical Exam not supported for this document type No Physical Exam Recorded Allergies Includes: Active, inactive, and resolved Allergies Substance Type Reaction Onset Date Resolved Date Statu s traMADol HCl Intolerance 11/27/2022 Acti ve Last Documented On 3 3:31PM ; [facility] SUMAtriptan Succinate Allergy 11/27/2022 Active Last Documented On 3 3:30PM ; [facility] Penicillins Allergy 11/27/2022 Active Last Documented On 3 1:59PM ; [facility] oxyCODONE HCl Allergy 11/27/2022 Activ e Last Documented On 3 3:30PM ; [facility] Metoprolol Succinate ER Allergy 11/27/2022 Active Last Documented On 3 3:31PM ; [facility] Gabapentin Allergy 11/27/2022 Active Last Documented On 3 2:00PM ; [facility] Cephalexin Allergy 11/27/2022 Active Last Documented On 3 3:30PM ; [facility] amLODIPine Besylate Allergy 11/27/2022 Active Last Documented On 3 3:31PM ; [facility] Adhesive Paper Allergy 11/27/2022 Acti ve Last Documented On 3 3:31PM ; [facility] Insurance Includes: Active Insurance Policies Plan Name Member ID Group # Subscriber Relationship Effect charlotte Dates 1 - [facility] [id number] MEGHA MYLES Self Clinical Notes Includes: Signed Clinical Notes starting from 09/21/2022 No Clinical Notes Recorded
--- OUTSIDE RECORDS SUMMARY | 2024-11-14 08:42 | XMS_ITS | Clinical Summary ---
Author Organization 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 Claros for headaches, unspecified neoplasm of brain Problems Includes: Problems addressed during this encounter and other active Problems Current Visit Onset Date Resolved Date Provider Conditio n Status Chronic Daily Headache Unknown KRYS SA G CR LIFE SKILLS COACH-FPA, RESOURCE EFFICIENCY MANAGER-BC Active Last Documented On 3 3:32PM ; [facility] Essential Hypertension Unknown ALEX G KUL P LIFE SKILLS COACH-FPA, RESOURCE EFFICIENCY MANAGER-BC Active Last Documented On 3 3:24PM ; [facility] Idiopathic Peripheral Neuropathy Unknown PETERSON VERÓNICA G CR LIFE SKILLS COACH-FPA, RESOURCE EFFICIENCY MANAGER-BC Active Last Documented On 3 3:32PM ; [facility] Migraine Headache Unknown ALEX G CR APR N-FPA, RESOURCE EFFICIENCY MANAGER-BC Active Last Documented On 3 3:32PM ; [facility] Schizophrenia Unknown ALEX G CR LIFE SKILLS COACH-FP A, RESOURCE EFFICIENCY MANAGER-BC Active Last Documented On 3 3:24PM ; [facility] Plan of Treatment No Plan of Treatment Recorded Assessments Includes: Assessments from this encounter Findings - [G43.009 - Migraine without aura, not intractable, without status migrainosus] Common migraine (without aura) without intractable migraine without status migrainosus - Last Documented On 11/28/2022 5:59PM ; [facility] - [G44.89 - Other headache syndrome] Chronic daily headache - Last Documented On 11/28/2022 5:59PM ; 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 - [G89.4 - Chronic pain syndrome] Chronic pain syndrome - Last Documented On 11/28/2022 5:59PM ; [facility] Medical Equipment - Implanted Devices Includes: Current Devices No Medical Equipment Recorded Medications Includes: Medications discussed during this encounter and other current Medications New / Renewed during this visit LANE PATEL on 11/27/2022 Topiramate 25 MG Oral Tablet Provider: LANE PATEL 14 day supply: 21 tablet, 0 refills Diagnosis: Migraine w/o aura, not intractable, w/o status migrainosus take 1 tablet at bedtime for 1 week then two times daily for 1 week then increase to 50mg two times daily Pharmacy: [facility] [address], [phone] - Last Documented On 3 5:56PM By ALEX SHERMAN ; [facility] Current Medications (continue as prescribed) Topiramate 50 MG Oral Tablet 03/29/2023 Provider: LANE PATEL Diagnosis: Migraine w/o aur a, not intractable, w/o status migrainosus TAKE 1 TABLET BY MOUTH TWICE DAILY [needs appt] Last Documented On 3 7:45PM By ALEX SHERMAN ; [facility] Ziprasidone HCl 80 MG Oral Capsule 11/07/2022 Provid er: LISANDRO ROGER APN Diagnosis: 1 at bedtime Last Documented On 3 5:56PM By ALEX SHERMAN ; [facility] Pregabalin 75 MG Oral Capsule 11/07/2022 Provider: SANDI CLAROS DO Diagnosis: Last Documented On 3 5:56PM By ALEX SHERMAN ; [facility] Carvedilol 6.25 MG Oral Tablet 10/17/2022 Provider: SANDI CLAROS DO Diagnosis: Last Documented On 3 5:56PM By ALEX SHERMAN ; [facility] Medications Administered Includes: Administered Medications from this encounter No Administered Medications Recorded Vital Signs Includes: Vital Signs from this encounter Vital Name 11/27/2022 02:03P Blood Pressure Sitting L 146/92 BP Cuff Size Regular Pulse Rate-Sitting (bpm) 90 Temp-Temporal 97 Height (in) 65 Weight (lb) 203 Body Mass Index 33.8 Body Surface Area (m2) 2.0 Oxygen Saturation (%) 99 Last Documented: On 11/27/2022 2:09PM ; [facility] Results Includes: Results discussed during this encounter No Results Recorded For Specified Dates History of Present Illness Includes: History of Present Illness from this encounter HPI PHQ-9 Score: 1 Date:11/27/2022 BPI Score: Date: MiDAS Score: Date: SOAPP-R Score: 7 Low Date:11/27/2022 Pain Location: Headaches. Quality: Different every time pressure, throbbing, Radiation: non Severity: Timing: Associated Sx: Aggravating Factors:Tv, smells, light, sounds. tension, being outside, cell phone. Alleviating Factors: Fluids, medication. Glasses. Past Tx: Pain Management,, medication, MEGHA MYLES is a 42 year old female. - Allergy list reviewed - Problem list reviewed - Medication reconciliation performed - Medication list reviewed - Patient accompanied by a family member spouse - Primary Care Provider: Dr. Claros - Prescription Drug Monitoring Program website checked. 08/17/2022 - Last dose of medication? - Pain is continuous - Pain in AM - Pain in PM - Primary pain location Head - Primary pain duration Daily - Pain is throbbing - Pain is dull, aching - Pain is shooting - Pain is sharp - Pain is pressure like - Pain is deep - Pain is stinging - Pain is heavy - Pain is tight - Pain is like pins/needles - Pain aggravated by light - Pain aggravated by sound - Pain radiates to both sides of forehead - Neck pain radiating to both sides - Vertigo Discussion: Patient referred by her primary care provider today for chronic daily headaches described as tension type headaches with migraines occurring 1 to 2 times a week. The patient states the migraines cause brain fog and confusion when she has them along with photophobia and vomiting. She feels like dehydration, bright lights, stress, and the TV being on can trigger her migraine headaches. An MRI from 10 years ago showed a brain mass that was unchanged from an MRI in 2009. The patient states she was told at the time that this mass was inoperable and they gave her 2 to 3 years to live if the mass continued to grow. She states it grew for a few years and then suddenly stopped growing and was stable. She has had chronic headaches since before the brain mass was found. They have worsened again in the last 2 to 3 years. The patient reports being on high doses of opiates in the past including Fentanyl patch w/ oral Dilaudid. Currently she uses THC gummy's, blue light glasses, always wears sunglasses, and limits her TV and phone use to help with her headaches. She has tried multiple preventative medications for her headaches but this was over 10 years ago and she can't remember what any of them were. When we started to discuss Topamax as a possibility for preventative she states that she believes she was on this before and it was beneficial for her. The patient had a recent MRI that we will need to obtain for review. She was also referred to a neurologist in [place] and will be seeing them later this month. I advised her to be sure to take the old MRI reports and imaging along with her new one to her appointment. She has history of alcohol use disorder but has not had any issue with abusing alcohol for the last six years. Imaging: All relevant imaging available was personally reviewed with the patient today with the following tests and results noted: MRI Brain 02/23/13 10x8 millimeter mass centered in the left ambient cistern at the left posterolateral aspect of the midbrain, most likely and intra-axial, without change from 06/20/10. The differential diagnosis includes low grade glioma, neuroglial cyst, and dilated perivascular space. Social History Description Last Updated Currently 2 kids: 6 miscarriages ~Kids 28 and 20 (girls) 11/27/2022 Last Documented On 3 5:59PM ; [facility] Occupation on Disability due to Schizoph veronica 11/27/2022 Last Documented On 3 5:59PM ; [facility] No consumption of alcohol Pr brendon drank daily for about 10 years. She has not used alcohol for 6 years accept for 1 day jimenez she lost a dog and relapsed for just the 1 day. ~Started drinking socially at 17 11/27/2022 Last Documented On 3 5:59PM ; [facility] Not using drugs 11/27/2022 Last Documented On 3 5:59PM ; [facility] Smoking packs of cigarettes per day One 11/27/2022 Last Documented On 3 5:59PM ; [facility] Current smoker 11/27/2022 Last Documented On 3 5:59PM ; [facility] Smoking Status Unknown Procedures and Surgical History Includes: Procedures from this encounter Procedures Code Diagnosis Performing Provider Service L ocation Service Date use of tobacco assessment performed 1000F Last Documented On 3 1:58PM ; [facility] standardized depression screening: negative for symptoms 3351F Last Documented On 3 2:14PM ; [facility] review of medications documented 1160F Last Documented On 3 1:29PM ; [facility] screening for adult depression: impressi on and score one Last Documented On 3 2:14PM ; [facility] Reviewed & agreed to staff entries. Last Documented On 3 1:29PM ; [facility] Clinical summary provided to patient Last Documented On 3 1:29PM ; [facility] SOAPP-R: total score 7 Last Documented On 3 2:12PM ; [facility] Surgical History Last Updated No Pacemaker 11/27/2022 Last Documented On 3 5:59PM ; [facility] Medical History Includes: Medical History addressed during this encounter Description Last Updated Please list all illnesses/co nditions you have been diagnosed with: Brain tumor, Bipolar, Depression,COPD, PMDD, Neuropathy 11/27/2022 Last Documented On 3 5:59PM ; [facility] Currently wearing eyeglasses 11/27/2022 Last Documented On 3 5:59PM ; [facility] No Pain Pump 11/27/2022 Last Documented On 3 5:59PM ; [facility] No Spinal cord stimulator 11/27/2022 Last Documented On 3 5:59PM ; [facility] Denies a fear of falling. 11/27/2022 Last Documented On 3 5:59PM ; [facility] Has had no fall in the last 12 months. 0 11/27/2022 Last Documented On 3 5:59PM ; [facility] Family History Includes: Family History addressed during this encounter Description Last Updated Family history of Bleeding disorder 11/01 Last Documented On 3 5:59PM ; [facility] Family history of ischemic heart disease 11/27/2022 Last Documented On 3 5:59PM ; [facility] Maternal history of Arthritis 11/27/2022 Last Documented On 3 5:59PM ; [facility] Maternal history of Bleeding disorder Last Documented On 3 5:59PM ; [facility] Maternal history of family history of is chemic heart disease 11/27/2022 Last Documented On 3 5:59PM ; [facility] Maternal history of family history of ki dney disease 11/27/2022 Last Documented On 3 5:59PM ; [facility] Maternal history of reported family hist ory of seizures 11/27/2022 Last Documented On 3 5:59PM ; [facility] Review of Systems Includes: Review of Systems from this encounter Systemic: No systemic symptoms other then noted. Recent weight change. No recent weight loss. Head: No head symptoms other then noted. Headache chronic/recurring. Neck: No neck pain. Eyes: Diplopia and blurred vision. Otolaryngeal: No otolaryngeal symptoms other than noted. Tinnitus. Cardiovascular: No cardiovascular symptoms other than noted. Cardiovascular symptoms. Pulmonary: No pulmonary symptoms other than noted. Dyspnea and wheezing. Gastrointestinal: No difficulty chewing and no dysphagia. Heartburn, nausea, and constipation. Genitourinary: No genitourinary symptoms other than noted. Increased urinary frequency and Pain with periods. Endocrine: No endocrine symptoms other than noted. Polydipsia and Weakness. Hematologic: No easy bleeding and no tendency for easy bruising. A tendency for easy bruising. Musculoskeletal: No musculoskeletal symptoms other than noted. Back pain, muscle cramps, pain localized to one or more joints, and joint stiffness localized to one or more joints. Neurological: No neurological symptoms other than noted. Dizziness and dizziness. No fainting passing out with needles or medical procedures. Memory lapses or loss, Tremors, and numbness. Psychological: Feeling nervous and depression. No sleep apnea. Skin: No skin symptoms other than noted. A skin wound is slow to heal. Mental Status Includes: Mental Status from this encounter Description Memory lapses or loss Functional Status Includes: Functional Status from this encounter No Functional Status Recorded Physical Exam Includes: Physical Exam from this encounter Allergies Includes: Active Allergies Substance Type Reaction Onset Date Resolved Date Statu s traMADol HCl Intolerance 11/27/2022 Acti ve Last Documented On 3 3:31PM ; [facility] SUMAtriptan Succinate Allergy 11/27/2022 Active Last Documented On 3 3:30PM ; [facility] Penicillins Allergy 11/27/2022 Active Last Documented On 3 1:59PM ; [facility] oxyCODONE HCl Allergy 11/27/2022 Activ e Last Documented On 3 3:30PM ; [facility] Metoprolol Succinate ER Allergy 11/27/2022 Active Last Documented On 3 3:31PM ; [facility] Gabapentin Allergy 11/27/2022 Active Last Documented On 3 2:00PM ; [facility] Cephalexin Allergy 11/27/2022 Active Last Documented On 3 3:30PM ; [facility] amLODIPine Besylate Allergy 11/27/2022 Active Last Documented On 3 3:31PM ; [facility] Adhesive Paper Allergy 11/27/2022 Acti ve Last Documented On 3 3:31PM ; [facility] Encounters Encounter Provider Location Date Check-In Time Check-Out Time Diagnosis PAIN MANAGEMENT NEW CONSULT ALEX HANKINS LIFE SKILLS COACH-FPA, RESOURCE EFFICIENCY MANAGER-BC [facility] 11/28/19 23 2:11PM 3:50PM Common Migraine W/o Aura W/o Intractable Migraine W/o Status Migrainosus,Ch ronic Daily Headache,Brain Neoplasm,Chron ic Pain Syndrome Insurance Includes: Active Insurance Policies Plan Name Member ID Group # Subscriber Relationship Effect charlotte Dates 1 - [facility] [id number] MEGHA MYLES Self Clinical Notes Includes: Clinical Notes from this encounter * Progress note Date Encounter Last Documented by 11/27/2022 PAIN MANAGEMENT NEW CONSULT Last documented on 11/28/2022; 5:59 PM, ALEX HANKINS LIFE SKILLS COACH-FPA, RESOURCE EFFICIENCY MANAGER-BC; [facility] Active Problems & Conditions - Chronic Daily Headache - Essential Hypertension - Idiopathic Peripheral Neuropathy - Migraine Headache - Schizophrenia Chief Complaint The Chief Complaint is: Referred by Dr. Claros for headaches, unspecified neoplasm of brain. History of Present Illness PHQ-9 Score: 1 Date:11/27/2022 BPI Score: Date: MiDAS Score: Date: SOAPP-R Score: 7 Low Date:11/27/2022 Pain Location: Headaches. Quality: Different every time pressure, throbbing, Radiation: non Severity: Timing: Associated Sx: Aggravating Factors:Tv, smells, light, sounds. tension, being outside, cell phone. Alleviating Factors: Fluids, medication. Glasses. Past Tx: Pain Management,, medication, MEGHA MYLES is a 42 year old female. - Allergy list reviewed - Problem list reviewed - Medication reconciliation performed - Medication list reviewed - Patient accompanied by a family member spouse - Primary Care Provider: Dr. Claros - Prescription Drug Monitoring Program website checked. 08/17/2022 - Last dose of medication? - Pain is continuous - Pain in AM - Pain in PM - Primary pain location Head - Primary pain duration Daily - Pain is throbbing - Pain is dull, aching - Pain is shooting - Pain is sharp - Pain is pressure like - Pain is deep - Pain is stinging - Pain is heavy - Pain is tight - Pain is like pins/needles - Pain aggravated by light - Pain aggravated by sound - Pain radiates to both sides of forehead - Neck pain radiating to both sides - Vertigo Discussion: Patient referred by her primary care provider today for chronic daily headaches described as tension type headaches with migraines occurring 1 to 2 times a week. The patient states the migraines cause brain fog and confusion when she has them along with photophobia and vomiting. She feels like dehydration, bright lights, stress, and the TV being on can trigger her migraine headaches. An MRI from 10 years ago showed a brain mass that was unchanged from an MRI in 2009. The patient states she was told at the time that this mass was inoperable and they gave her 2 to 3 years to live if the mass continued to grow. She states it grew for a few years and then suddenly stopped growing and was stable. She has had chronic headaches since before the brain mass was found. They have worsened again in the last 2 to 3 years. The patient reports being on high doses of opiates in the past including Fentanyl patch w/ oral Dilaudid. Currently she uses THC gummy's, blue light glasses, always wears sunglasses, and limits her TV and phone use to help with her headaches. She has tried multiple preventative medications for her headaches but this was over 10 years ago and she can't remember what any of them were. When we started to discuss Topamax as a possibility for preventative she states that she believes she was on this before and it was beneficial for her. The patient had a recent MRI that we will need to obtain for review. She was also referred to a neurologist in [place] and will be seeing them later this month. I advised her to be sure to take the old MRI reports and imaging along with her new one to her appointment. She has history of alcohol use disorder but has not had any issue with abusing alcohol for the last six years. Imaging: All relevant imaging available was personally reviewed with the patient today with the following tests and results noted: MRI Brain 02/23/13 10x8 millimeter mass centered in the left ambient cistern at the left posterolateral aspect of the midbrain, most likely and intra-axial, without change from 06/20/10. The differential diagnosis includes low grade glioma, neuroglial cyst, and dilated perivascular space. Current Medication - Carvedilol 6.25 MG Oral Tablet One tablet twice a day 90 days, 0 refills - Pregabalin 75 MG Oral Capsule One tablet daily 30 days, 0 refills - Ziprasidone HCl 80 MG Oral Capsule as directed 1 at bedtime, 30 days, 0 refills Past Medical/Surgical History Reported: Please list all illnesses/conditions you have been diagnosed with: Brain tumor, Bipolar, Depression,COPD, PMDD, Neuropathy. Medical: Currently wearing eyeglasses. No Spinal cord stimulator and no Pain Pump. Surgical / Procedural: No Pacemaker. Physical Trauma: Has had no fall in the last 12 months. and Denies a fear of falling. Social History Tobacco use: Cigarette smoking smoking packs of cigarettes per day One. Alcohol: No consumption of alcohol Previous drank daily for about 10 years. She has not used alcohol for 6 years accept for 1 day jimenez she lost a dog and relapsed for just the 1 day. Started drinking socially at 17. Drug Use: Not using drugs. Work: Occupation on Disability due to Schizophrenia. Marital: Currently 2 kids: 6 miscarriages Kids 28 and 20 (girls). Allergies - Adhesive Paper - amLODIPine Besylate - Cephalexin - Gabapentin - Metoprolol Succinate ER - oxyCODONE HCl - Penicillins - SUMAtriptan Succinate - traMADol HCl (Intolerance) Family History Ischemic heart disease Bleeding disorder Maternal: Arthritis Reported family history of seizures Ischemic heart disease Kidney disease Bleeding disorder Review Of Systems Systemic: No systemic symptoms other then noted. Recent weight change. No recent weight loss. Head: No head symptoms other then noted. Headache chronic/recurring. Neck: No neck pain. Eyes: Diplopia and blurred vision. Otolaryngeal: No otolaryngeal symptoms other than noted. Tinnitus. Cardiovascular: No cardiovascular symptoms other than noted. Cardiovascular symptoms. Pulmonary: No pulmonary symptoms other than noted. Dyspnea and wheezing. Gastrointestinal: No difficulty chewing and no dysphagia. Heartburn, nausea, and constipation. Genitourinary: No genitourinary symptoms other than noted. Increased urinary frequency and Pain with periods. Endocrine: No endocrine symptoms other than noted. Polydipsia and Weakness. Hematologic: No easy bleeding and no tendency for easy bruising. A tendency for easy bruising. Musculoskeletal: No musculoskeletal symptoms other than noted. Back pain, muscle cramps, pain localized to one or more joints, and joint stiffness localized to one or more joints. Neurological: No neurological symptoms other than noted. Dizziness and dizziness. No fainting passing out with needles or medical procedures. Memory lapses or loss, Tremors, and numbness. Psychological: Feeling nervous and depression. No sleep apnea. Skin: No skin symptoms other than noted. A skin wound is slow to heal. Physical Findings - Vitals taken 11/27/2022 02:03 pm BP-Sitting L 146/92 mmHg BP Cuff Size Regular Pulse Rate-Sitting 90 bpm Temp-Temporal 97 F Height 65 in Weight 203 lbs Body Mass Index 33.8 kg/m2 Oxygen Saturation 99 % Vital Signs: - Pain level by numeric rating scale 8. Psychiatric: Psychiatric: Value PHQ9 score: 1 Constitutional: Well developed. Well nourished. No acute distress. HEENT: NC/AT. Anicteric. Clear Conjunctiva. PERRLA. MM's pink/moist. No discharge via nares. No discharge via EAC. Neck supple. No thyromegally. No palpable masses. No lymphadenopathy in cervical chain bilaterally. CVS: RRR. No murmurs. No peripheral edema. Peripheral pulses palpable in all extremities. Pulmonary: CTA bilaterally. No wheezes. No rales. No crackles. No rubs. Normal chest expansion. Spine/MSK: n/a Gait: Not antalgic. No steppage gait. No Trendelenburg gait. No circumspected gait pattern. Heel walk normal. Toe walk normal. Tandem gait normal. Neuro: Awake. Alert. Oriented x3. DTR's intact in all extremities. DTR's equal in all extremities. No sensory deficit. No motor deficit. Psych: No apparent distress. Mood normal. Affect normal. No pain behaviors. Skin: Normal. [place], warm, dry. 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 - Clinical summary provided to patient. Discussed Start and titrate up on Topiramate as discussed. See Neurology and have them send notes. FU 2 months. Plan StartCited - Migraine w/o aura, not intractable, w/o status migrainosus Topiramate 25 MG tablet take 1 tablet at bedtime for 1 week then two times daily for 1 week then increase to 50mg two times daily, 14 days, 0 refills Topiramate 50 MG tablet One tablet twice a day, 30 days, 1 refills EndCited StartCited - Other PHY ORDER/COMMENT please request most recent brain MRI done at [facility] Practice Management Use of tobacco assessment performed Review of medications documented; Standardized depression screening: negative for symptoms and for adult impression and score one; [12450] New outpatient, medically appropriate H&P, moderate level decision making, 45-59 minutes. A total of 55 minutes were spent on this patient's evaluation, as above, with greater than 50% of this time spent in direct [id number] counseling and coordination of care. Results of this interaction were communicated directly to the patient's referring and/or primary care provider. All imaging studies and test results discussed in the above document were personally reviewed and evaluated by the performing provider. For all patients on acute or chronic opioids, ongoing need for opioid analgesia is assessed at each visit with consideration of discontinuation or wean to lowest effective dose when possible and appropriate. Contents of this document have been edited for correctness, but may be subject to typographical or housekeeping room inspector errors. Verify all diagnoses, medications, dosages, and patient instructions with patient and/or the originator of this document. Health Reminders - Assess Blood Pressure satisfied 11/27/2022. - Assess BMI satisfied 11/27/2022. - Assess Tobacco Use satisfied 11/27/2022. - Depression Screening satisfied 11/27/2022. - Follow up plan for Depression Screening satisfied 11/27/2022. - Smoking & Tobacco Cessation Intervention and Counseling satisfied 11/28/2022.
--- OUTSIDE RECORDS SUMMARY | 2024-11-14 08:42 | XMS_ITS | Clinical Summary ---
Author Organization [facility] Address [facility] [place] [address] Care Team Providers Care Heat Transfer Technician Name Role Phone Eze Ley MD Primary Care Provider [phone] Allergies Active Allergy Reactions Criticality Noted Date Comments Tape Rash Low 04/12/2021 Alcohol Itching 04/12/2021 Benzoyl Peroxide Itching 04/12/2021 Penicillins Anaphylaxis High 04/12/2021 Shellfish-Derived Products Anaphylaxis High 04/12/20 21 Medications ziprasidone 80 MG capsule Take 80 mg by mouth nightly. Active quinapril 40 MG tablet Take 40 mg by mouth 2 (two) times daily. Active Cannabinoids (THC FREE OR) Active Social History Tobacco Use Types Packs/Day Years Used Date Smoking Tobacco: Every Day Cigarettes Smokeless Tobacco: Never Alcohol Use Standard Drinks/Week Comments Never 0 (1 standard drink = 0.6 oz pur e alcohol) AUDIT-C Answer Date Recorded Q1: How often do you have a drink containing alc ohol? 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 Gender Identity Not on file Sexual Orientation Not on file Last Filed Vital Signs Vital Sign Reading Time Taken Comments Blood Pressure 123/76 04/12/2021 11:00 AM CDT Pulse 111 04/12/2021 10:09 AM CDT Temperature 36.5 C (97.7 F) 04/12/2021 10:19 AM CDT Respiratory Rate 26 04/12/2021 10:09 AM CDT Oxygen Saturation 100% 04/12/2021 11:00 AM CDT Inhaled Oxygen Concentration - - Weight 81.6 kg (180 lb) 04/12/2021 10:19 AM CDT Height 165.1 cm (5' 5 ) 04/12/2021 10:19 AM CDT Body Mass Index 29.95 04/12/2021 10:19 AM CDT Plan of Treatment Health Maintenance Due Date Last Done Comments Cervical Cancer Screening Pa p Smear (Age 30 to 64) Every 3 Years 1979 Colorectal Cancer Screening Colonoscopy (10 Years) 1979 Annual Physical 1982 Pneumococcal Vaccine: Pediat rics (0 to 5 Years) and At-Risk Patients (6 to 64 Years) (1 of 2 - PCV) 1985 Hepatitis C 1997 DTaP, Tdap and Td Vaccines ( 1 - Tdap) 1998 Hepatitis B Vaccines (1 of 3 - 19+ 3-dose series) 1998 Cervical Cancer Screening Pa p with HPV Testing (Age 30 to 64) Every 5 Years 2009 Cervical Cancer Screening with HPV 2009 Mammogram Screening 2019 COVID-19 Vaccine (2023-2 5 season) 2024 Influenza Adult (#1) 2024 HPV Vaccines Aged Out No longer eligi ble based on patient's age to complete this topic Meningococcal B Vaccine Aged Out No l onger eligible based on patient's age to complete this topic Meningococcal Vaccine Aged Out No nohemy glenn eligible based on patient's age to complete this topic RSV Immunizations Under 20 Months Aged Out No longer eligible based on patient's age to complete this topic Insurance MEDICAID MEDICARE Care Teams Heat Transfer Technician Relationship Specialty Start Date End Date Eze Ley MD [address] [place] [address] PCP - General FAMILY PRACTICE 04/12/21
--- OUTSIDE RECORDS SUMMARY | 2024-11-14 08:42 | XMS_ITS | Clinical Summary ---
Author Organization [facility] Address [address] [place] [phone] Phone Care Team Providers Care Automatic Oven Operator Name Role Phone SANDI CLAROS DO Primary Care Provider [phone] Reason for Visit and Chief Complaint [Patient Encounter] Problems Includes: Problems addressed during this encounter and other active Problems All Visits Onset Date Resolved Date Provider Condition S tatus Chronic Daily Headache Unknown KRYS SA G CR CONNECTION WORKER-FPA, MEDICINE ASSISTANT-BC Active Last Documented On 3 3:32PM ; [facility] Essential Hypertension Unknown ALEX G KUL P CONNECTION WORKER-FPA, MEDICINE ASSISTANT-BC Active Last Documented On 3 3:24PM ; [facility] Idiopathic Peripheral Neuropathy Unknown PETERSON VERÓNICA G CR CONNECTION WORKER-FPA, MEDICINE ASSISTANT-BC Active Last Documented On 3 3:32PM ; [facility] Migraine Headache Unknown ALEX G CR APR N-FPA, MEDICINE ASSISTANT-BC Active Last Documented On 3 3:32PM ; [facility] Schizophrenia Unknown ALEX G CR CONNECTION WORKER-FP A, MEDICINE ASSISTANT-BC Active Last Documented On 3 3:24PM ; [facility] Plan of Treatment No Plan of Treatment Recorded Assessments Includes: Assessments from this encounter No Assessments Recorded Medical Equipment - Implanted Devices Includes: Current Devices No Medical Equipment Recorded Medications Includes: Medications discussed during this encounter and other current Medications Discontinued / Stopped on this date ALEX G CR CONNECTION WORKER-FPA, MEDICINE ASSISTANT-BC on 12/25/2022 Topiramate 50 MG Oral Tablet Provider: LANE PATEL Diagnosis: Migraine w/o aur a, not intractable, w/o status migrainosus Last Documented On 3 7:37PM By ALEX SHERMAN ; [facility] Current Medications (continue as prescribed) Topiramate 50 MG Oral Tablet 03/29/2023 Provider: LANE PATEL Diagnosis: Migraine w/o aur a, not intractable, w/o status migrainosus TAKE 1 TABLET BY MOUTH TWICE DAILY [needs appt] Last Documented On 3 7:45PM By ALEX SHERMAN ; [facility] Topiramate 25 MG Oral Tablet 11/27/2022 Provider: LANE PATEL Diagnosis: Migraine w/o aur a, not intractable, w/o status migrainosus take 1 tablet at bedtime for 1 week then two times daily for 1 week then increase to 50mg two times daily Last Documented On 3 5:56PM By ALEX SHERMAN ; [facility] Ziprasidone HCl 80 MG Oral Capsule 11/07/2022 Provid er: LISANDRO ROGER APN Diagnosis: 1 at bedtime Last Documented On 3 5:56PM By ALEX SHERMAN ; [facility] Pregabalin 75 MG Oral Capsule 11/07/2022 Provider: SANDI CLAROS DO Diagnosis: Last Documented On 3 5:56PM By ALEX SHERMAN ; [facility] Carvedilol 6.25 MG Oral Tablet 10/17/2022 Provider: SANDI CLAROS DO Diagnosis: Last Documented On 3 5:56PM By ALEX SHERMAN ; [facility] Medications Administered Includes: Administered Medications from this encounter No Administered Medications Recorded Results Includes: Results discussed during this encounter No Results Recorded For Specified Dates History of Present Illness Includes: History of Present Illness from this encounter No History of Present Illness Recorded Social History No Social History Recorded - Smoking Status Unknown Medical History Includes: Medical History addressed during this encounter No Medical History Recorded Family History Includes: Family History addressed during this encounter No Family History Recorded Review of Systems Includes: Review of Systems from this encounter No Review of Systems Recorded Mental Status Includes: Mental Status from this encounter No Mental Status Recorded Functional Status Includes: Functional Status from this encounter No Functional Status Recorded Physical Exam Includes: Physical Exam from this encounter No Physical Exam Recorded Allergies Includes: Active Allergies Substance Type Reaction Onset Date Resolved Date Statu s traMADol HCl Intolerance 11/27/2022 Acti ve Last Documented On 3 3:31PM ; [facility] SUMAtriptan Succinate Allergy 11/27/2022 Active Last Documented On 3 3:30PM ; [facility] Penicillins Allergy 11/27/2022 Active Last Documented On 3 1:59PM ; [facility] oxyCODONE HCl Allergy 11/27/2022 Activ e Last Documented On 3 3:30PM ; [facility] Metoprolol Succinate ER Allergy 11/27/2022 Active Last Documented On 3 3:31PM ; [facility] Gabapentin Allergy 11/27/2022 Active Last Documented On 3 2:00PM ; [facility] Cephalexin Allergy 11/27/2022 Active Last Documented On 3 3:30PM ; [facility] amLODIPine Besylate Allergy 11/27/2022 Active Last Documented On 3 3:31PM ; [facility] Adhesive Paper Allergy 11/27/2022 Acti ve Last Documented On 3 3:31PM ; [facility] Encounters Encounter Provider Location Date Check-In Time Check-Out Time Diagnosis [Patient Encounter] ALEX HANKINS CONNECTION WORKER-FPA, MEDICINE ASSISTANT-BC 03/29/2023 10:23AM 11:59PM Insurance Includes: Active Insurance Policies Plan Name Member ID Group # Subscriber Relationship Effect charlotte Dates 1 - [facility] [id number] MEGHA MYLES Self Clinical Notes Includes: Clinical Notes from this encounter No Clinical Notes Recorded
--- OUTSIDE RECORDS SUMMARY | 2024-11-14 08:42 | XMS_ITS | Encounter Summary ---
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
--- OUTSIDE RECORDS SUMMARY | 2024-11-14 08:42 | XMS_ITS ---
Care Plan - [facility] Created on: November 14, 2024 MEGHA MYLES : 1980 Sex: Female Author Organization [facility] Address [address] [place] [phone] Phone Care Team Providers Care Carrier Driver Name Role Phone SANDI CLAROS DO Primary Care Provider [phone]
== END 2024-11-14 08:40 | disposition home or self-care (01) ==
LOC: CHSIMG 08:39
PROVIDERS: PCP Family Medicine; Visit Provider Nurse Practitioner Family
DX: C71.9 Malignant neoplasm of brain, unspecified (principal)
CPT/HCPCS: 70551

== ENCOUNTER 2025-08-10 09:05 | Outpatient (CLI) | payer OTHER, SELFPAY ==
--- NOTE | ~2025-08-10 | MMUS_ITS ---
EXAMINATION: MM diagnostic nicholas BI w starr, US axilla RT HISTORY: Palpable abnormality in the right axilla TECHNIQUE: Craniocaudal and mediolateral oblique 3-D tomosynthesis images were obtained and synthetic 2-D images were generated. CAD analysis was submitted and interpreted. Grayscale sonography over the area(s) of interest with color Doppler if there is a finding. COMPARISON: None available. BREAST PARENCHYMAL COMPOSITION: Dense: The breasts are heterogeneously dense MAMMOGRAM FINDINGS: No suspicious masses are seen mammographically. There are no suspicious calcifications. No unexplained architectural distortion is seen. There are no skin or nipple abnormalities identified. There is no adenopathy seen on the images submitted. ULTRASOUND FINDINGS: In the area of palpable clinical concern in the right axilla, there is a cystic mass located entirely in the skin layer which shows a partial tract to the skin. The maximum dimension is 6 mm. IMPRESSION: The palpable area corresponds to a skin lesion, consistent with an epidermoid cyst. This is a benign finding. No mammographic evidence to suggest malignancy is seen. The patient may return to screening mammography as per ACR guidelines. BI-RADS 2 - Benign. Reviewed, dictated and finalized at location C. ATORY PILE DRIVER IMPRESSION: The palpable area corresponds to a skin lesion, consistent with an epidermoid c yst. This is a benign finding. No mammographic evidence to suggest malignancy i s seen. The patient may return to screening mammography as per ACR guidelines. BI-RADS 2 - Benign.
== END 2025-08-10 09:06 | disposition home or self-care (01) ==
PROVIDERS: PCP Family Medicine; Visit Provider Family Medicine
DX: N63.11 Unspecified lump in the right breast, upper outer quadrant (principal)
CPT/HCPCS: 76882; 77062; 77066; G0279